=== PATIENT | male | born 1975 | race Caucasian/White ===

== ENCOUNTER 2024-05-17 17:14 | Emergency (ER) | payer OTHER, SELFPAY ==
[2024-05-17 17:19] VITALS: BP 191/124; PULSE 131; RESP 11; TEMP 37; O2SAT 96
--- NOTE | 2024-05-17 17:28 | ED_ITS ---
HPI - Seizure General Chief Complaint: Seizure Stated Complaint: SEIZURE Time Seen by Provider: 05/17/24 17:17 History of Present Illness HPI Narrative: Patient presents here after witnessed seizure at work, he does have a history of seizures is on carbamazepine last seizure was year ago. He was given 4 mg of Narcan accidentally before given 5 mg of Versed intranasally with cessation of seizure, afterwards he does seem very postictal, though he is starting to become more weak. Denies any complaints other than he does have a slight headache, nausea, feeling tired Related Data Home Medications ?Medication ?Instructions ?Recorded ?Confirmed ?Last Taken ?Type carbamazepine 200 mg 1,200 mg PO BID 05/17/24 05/17/24 05/17/24 History tablet,extended release,12 hr Allergies Allergy/AdvReac Type Severity Reaction Status Date / Time droperidol Allergy Intermediate hallucinati Verified 05/17/24 17:30 ons divalproex sodium Allergy Unknown Hallucinati Verified 05/17/24 17:30 ng aspirin AdvReac Unknown Other Verified 05/17/24 17:30 Review of Systems 2 Review of Systems: All systems reviewed & are unremarkable except as noted in HPI and below [facility] Family History Family History (Updated 02/15/18 @ 17:05 by DOCTOR UNKNOWN) Father Malignant neoplasm of prostate Mother Family history of type 2 diabetes mellitus Other Hypertension Social History Social History Smoking status: Never smoker Alcohol intake: current Exam 2 Narrative: EXAMINATION OF ORGAN SYSTEMS/BODY AREAS: Constitutional: Vital signs per nursing GENERAL:[No acute distress, non-toxic appearing.] HEAD: Normal with no signs of head trauma. EYES: EOMI, PERRL. Conjunctiva normal ENT: Hearing grossly intact LUNGS: Nonlabored breathing. HEART: [Regular rate and rhythm] ABD: [Soft], [nontender to palpation] EXT: Normal range of motion SKIN: [No rashes or lesions.] NEURO: [Slightly sleepy but answering questions, oriented x3, following commands. No gross focal sensory or strength deficits.] PSYCH: Normal affect Course Vital Signs Vital signs: Vital Signs Temperature 98.6 F 05/17/24 17:19 Pulse Rate 131 H 05/17/24 17:19 Respiratory Rate 11 L 05/17/24 17:19 Blood Pressure 191/124 H 05/17/24 17:19 Pulse Oximetry 96 05/17/24 17:19 Oxygen Delivery Room Air 05/17/24 17:19 Temperature 98.6 F 05/17/24 17:19 Pulse Rate 124 H 05/17/24 18:16 Respiratory Rate 17 05/17/24 18:16 Blood Pressure 188/110 H 05/17/24 18:16 Pulse Oximetry 99 05/17/24 17:53 Oxygen Delivery Room Air 05/17/24 17:53 MDM - Seizure MDM Narrative Medical decision making narrative: 48F presenting with breakthrough seizures occurring today. Accu-Chek is normal. Seizure precautions are initiated. Patient already got 5mg versed IN. Starting to become more responsive here; rpt VS improved. EKG on my independent interpretation shows sinus rhythm rate 91, normal OK, QRS, QTC 477, normal axis, some PACs. Plan for a period of observation in ER and if without any recurrence of the symptoms, will be discharged in stable condition with return precautions and outpatient follow-up. On re-evaluation he is now awake, alert, walking around and at back to baseline, girlfriend at bedside, he is a little tachycardic, but denies any chest pain or shortness of breath, had normal EKG, I will give him fluids, instructed to keep hydrated and follow-up with neurology Lab Data 05/17/24 17:40 05/17/24 17:40 Labs: Lab Results 05/17/24 05/17/24 Range/Units 17:40 17:45 WBC 6.7 (4.5-10.0) K/mm3 RBC 4.34 L (4.6-6.20) M/mm3 Hgb 14.3 (14.0-18.0) g/dL Hct 41.8 L (42.0-52.0) % MCV 96.3 (80-100) fl MCH 32.9 (26-34) pg MCHC 34.2 (32-36) g/dl RDW 11.9 (11.5-14.5) % Plt Count 164 (150-375) k/mm3 MPV 9.4 (7.4-10.4) fl Immature Gran % (Auto) 0.3 (0-0.5) % Neut % (Auto) 72.2 (45.5-73.1) % Lymph % (Auto) 13.8 L (18.3-44.2) % [place] % (Auto) 13.4 H (2.6-8.5) % Eos % (Auto) 0.0 (0-4.4) % Baso % (Auto) 0.3 (0.2-1.2) % Lymph # (Auto) 0.93 (0.9-3.2) K/mm3 [place] # (Auto) 0.9 H (0.1-0.6) K/mm3 Eos # (Auto) 0.0 (0-0.3) K/mm3 Baso # (Auto) 0.0 (0.0-0.1) K/mm3 Abs Immat Gran (auto) 0.02 (0.00-0.031) K/mm3 Absolute Neuts (auto) 4.9 (1.3-6.7) K/mm3 Absolute Nucleated RBC 0.000 (0.0-0.012) K/mm3 Nucleated RBC % 0.0 (0.0-0.2) % Sodium 135 L (137-145) mmol/L Potassium 3.4 (3.4-5.0) mmol/L Chloride 102 (98-107) mmol/L Carbon Dioxide 21 L (22-30) mmol/L Anion Gap 12 (4-12) mmol/L BUN 15 (9-20) mg/dL Creatinine 0.89 (0.7-1.3) mg/dL Estim Creat Clear Calc 122 ml/min Estimated GFR > 60 (59 - ) Glucose 113 H (65-110) mg/dL Calcium 8.4 (8.4-10.2) mg/dL Urine Opiates Screen Negative (Negative) Urine Methadone Screen Negative (Negative) Ur Barbiturates Screen Negative (Negative) Ur Phencyclidine Scrn Negative (Negative) Ur Amphetamine Screen Negative (Negative) U Benzodiazepines Scrn Positive A (Negative) Urine Cocaine Screen Negative (Negative) U Cannabinoids Screen Negative (Negative) Discharge Plan Discharge Clinical Impression: Epileptic seizure Patient Disposition: Home, Self-Care Condition: Stable Instructions: Epilepsy (ED) Additional Instructions: Make sure you are keeping hydrated, follow-up with neurologist, come back to the emergency room for any further issues. Make sure you are taking your medications as prescribed. Patient Language: French Prescriptions: No Action carbamazepine 200 mg tablet extended release 12 hr 1,200 mg PO BID lisinopril-hydrochlorothiazide 10-12.5 mg tablet 1 tablet PO DAILY Qty: 90 1RF montelukast 10 mg tablet See Rx Instructions .ROUTE .COMPLEX Qty: 90 0RF Dose Instruction: TAKE 1 TABLET BY MOUTH EVERY DAY Rx Instructions: TAKE 1 TABLET BY MOUTH EVERY DAY escitalopram oxalate 20 mg tablet See Rx Instructions .ROUTE .COMPLEX Qty: 90 0RF Dose Instruction: TAKE 1 TABLET BY MOUTH EVERY DAY Rx Instructions: TAKE 1 TABLET BY MOUTH EVERY DAY Follow-up/Referrals: Maria M,Paulino Tucker MD [Primary Care Provider] -
[2024-05-17 17:48] VITALS: O2SAT 100
[2024-05-17 17:48] LABS: Basophils Percent Auto 0.3 % (0.2-1.2); Hematocrit 41.8 % (42.0-52.0); Hemoglobin 14.3 g/dL (14.0-18.0); Immature Granulocyte Absolute 0.02 K/mm3 (0.00-0.031); Immature Granulocyte Percent A 0.3 % (0-0.5); Lymphocytes Absolute Auto 0.93 K/mm3 (0.9-3.2); Lymphocytes Percent Auto 13.8 % (18.3-44.2); Mean Corpuscular HGB Conc 34.2 g/dl (32-36); Mean Corpuscular Hemoglobin 32.9 pg (26-34); Mean Corpuscular Volume 96.3 fl (80-100); Mean Platelet Volume 9.4 fl (7.4-10.4); Monocytes Absolute Auto 0.9 K/mm3 (0.1-0.6); Monocytes Percent Auto 13.4 % (2.6-8.5); Neutrophils Absolute Auto 4.9 K/mm3 (1.3-6.7); Neutrophils Percent Auto 72.2 % (45.5-73.1); Platelet Count Result 164 k/mm3 (150-375); Red Blood Count 4.34 M/mm3 (4.6-6.20); Red Cell Distribution Width 11.9 % (11.5-14.5); White Blood Count 6.7 K/mm3 (4.5-10.0)
[2024-05-17 17:52] VITALS: PULSE 131
[2024-05-17 17:53] VITALS: O2SAT 99
--- NOTE | 2024-05-17 17:56 | ECG_ITS ---
Test Date: 2024-05-17 17:26:25 Measurements Intervals [place] Rate: 91 P: 3 [place]: 170 QRS: 62 QRSD: 91 T: -4 QT: 387 QTc: 477 Interpretive Statements SINUS RHYTHM WITH OCCASIONAL SUPRAVENTRICULAR PREMATURE COMPLEXES DELAYED PRECORDIAL R/S TRANSITION MINIMAL Q WAVES- INFERIOR LEADS NONSPECIFIC ST-T WAVE ABNORMALITY- INF/LAT LEADS BORDERLINE ECG No previous ECG available for comparison Electronically Signed On 05-17-2024 20:16:25 OPERATING ROOM SPECIALIST by Nawaf Wolf D.O.
[2024-05-17 17:58] LABS: Anion Gap 12 mmol/L (4-12); Blood Urea Nitrogen 15 mg/dL (9-20); Calcium 8.4 mg/dL (8.4-10.2); Carbon Dioxide 21 mmol/L (22-30); Chloride 102 mmol/L (98-107); Estimated CRCL calculation 122 ml/min; Estimated Glomerular Filt Rate > 60; Glucose 113 mg/dL (65-110); Potassium 3.4 mmol/L (3.4-5.0); Sodium 135 mmol/L (137-145)
[2024-05-17 18:02] VITALS: BP 188/117; PULSE 128; RESP 16
[2024-05-17 18:07] LABS: Amphetamine Screen Urine Negative (Negative); Barbiturate Screen Urine Negative (Negative); Benzodiazepines Screen Urine Positive (Negative); Cannabinoid Screen Urine Negative (Negative); Cocaine Screen Urine Negative (Negative); Methadone Screen Urine Negative (Negative); Opiate Screen Urine Negative (Negative); Phencyclidine Screen Urine Negative (Negative)
[2024-05-17 18:16] VITALS: BP 188/110; PULSE 124; RESP 17
--- OUTSIDE RECORDS SUMMARY | 2024-05-17 18:21 | XMS_ITS | Referral Summary ---
Author Organization [facility] Building [facility] Address [address] [place] [address] Care Team Providers Care Legend Maker Name Role Phone Tim Pizano MD Primary Care Provider [phone] Allergies Active Allergy Reactions Criticality Noted Date Comments Divalproex Hallucinations Medium Droperidol Other (See comments) Low Agitation and psychosis Iodinated Contrast Media Itching Low 07/06/2021 Penicillins Unknown Low Phenobarbital Agitation Low 09/26/2018 Oseltamivir Hallucinations,Agita abirl n,Nausea & Vomiting Medium 08/22/2019 Vigabatrin Hallucinations Medium 09/10/2015 Medications montelukast (SINGULAIR) 10 mg tablet TAKE 1 TABLET(10 MG) BY MOUTH EVERY NIGHT 90 tablet 3 09/29/19 18 Active escitalopram (LEXAPRO) 20 mg tablet TAKE 1 TABLET BY MOUTH EVERY DAY 01/30/20 18 Active albuterol HFA (PROVENTIL HFA,VENTOLIN HFA,PROAIR HFA) 90 mcg/actuation inhaler Inhale 2 puffs 05/27/19 20 Active losartan-hydro CHLOROthiazide (HYZAAR) 50-12.5 mg per tablet Take 1 tablet by mouth daily 12/21/19 21 Active famotidine (PEPCID) 40 mg tabletIndicati ons:Laryngopha ryngeal reflux (LPR) Take 1 tablet (40 mg total) by mouth nightly 90 tablet 3 11/30/19 22 Active fluticasone propionate (FLONASE) 50 mcg/actuation nasal spray Administer 1 spray into each nostril daily 1 each 12/03/19 23 Active carBAMazepine ER (CARBATROL) 200 mg 12 hr capsuleIndicat ions:Seizures (HCC) TAKE 4 CAPSULES BY MOUTH TWICE DAILY 720 capsule 3 01/18/20 24 Active midazolam (Nayzilam) 5 mg/spray (0.1 mL) spray,non-aero armando spray units INSTILL 1 DROP INTO ONE NOSTRIL EVERY DAY NEEDED 2 each 5 03/08/20 24 Active lacosamide (VIMPAT) 100 mg tablet TAKE 1 TABLET(100 MG) BY MOUTH TWICE DAILY 60 tablet 3 05/13/19 25 Active lacosamide (VIMPAT) 100 mg tablet TAKE 1 TABLET(100 MG) BY MOUTH TWICE DAILY 60 tablet 3 01/05/20 24 025 Discontinued Active Problems Problem Noted Date Diagnosed Date 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/29/19 23 Tendinitis of right foot 12/06/2021 Right foot sprain, initial encounter 12/06/2021 Sudden right hearing loss 11/29/2021 Assessment & Plan (11/29/2021 8:41 AM CDT): Zpak with a meal daily Continue Zyrtec daily Increase Flonase 2 sprays into each nostril while looking down over the sink, do not sniff in or blow nose after use for at least 30 minutes twice daily Restart Pepcid 40 mg at bedtime for 6 weeks Hearing test for Sudden Hearing loss [facility] Cough 08/27/2020 Assessment & Plan (08/27/2020 5:11 PM CDT): Chest X-ray Follow up with Primary care provider for alternative blood pressure therapy off SEVEN-inhibitor for cough Pepcid 40 mg at bedtime Continue Allergy medications Laryngopharyngeal reflux (LPR) 08/27/2020 Assessment & Plan (11/29/2021 8:41 AM CDT): Zpak with a meal daily Continue Zyrtec daily Increase Flonase 2 sprays into each nostril while looking down over the sink, do not sniff in or blow nose after use for at least 30 minutes twice daily Restart Pepcid 40 mg at bedtime for 6 weeks Hearing test for Sudden Hearing loss [facility] Assessment & Plan (08/27/2020 5:11 PM CDT): Chest X-ray Follow up with Primary care provider for alternative blood pressure therapy off SEVEN-inhibitor for cough Pepcid 40 mg at bedtime Continue Allergy medications LPR discussed and Handout provided Foot sprain, left, initial encounter 03/14/2019 Hypertrophy of nasal turbinates 04/12/2018 Hypertrophy of tonsils alone 04/12/2018 Esophageal reflux 04/12/2018 Deviated nasal septum 04/12/2018 Chronic laryngitis 04/12/2018 Assessment & Plan (11/29/2021 8:41 AM CDT): Zpak with a meal daily Continue Zyrtec daily Increase Flonase 2 sprays into each nostril while looking down over the sink, do not sniff in or blow nose after use for at least 30 minutes twice daily Restart Pepcid 40 mg at bedtime for 6 weeks Hearing test for Sudden Hearing loss [facility] Periodic limb movement disorder 04/12/2018 Seasonal allergic rhinitis 09/28/2017 Assessment & Plan (09/28/2017 9:54 AM CDT): Patient is responded favorably to fluticasone nasal spray, Xyzal and Singulair as prescribed. Patient's sinonasal symptoms are well controlled with this treatment regimen. His medications will be renewed. Future renewal of the medications can be performed by his primary care physician to try to reduce physician visits. Patient can follow back up with me as needed. Elevated blood pressure, situational 09/01/2017 Complex partial seizure evolving to generalized seizure 07/29/2017 Obstructive sleep apnea (adult) (pediatric) 06/2016 Assessment & Plan (10/06/2016 8:17 AM CDT): Patient's last sleep study was performed November 2013. Since then he has lost over 30 lb and also has been on allergy medication on a compliant basis. His initial sleep study demonstrated mild obstructive sleep apnea with an apnea-hypopnea index: 8.8. Today's [place] score: 3 . I suspect that a updated sleep study would have markedly different results due to the changes that have occurred with this patient. We will arrange home sleep study with CAMIL[facility]. Patient will follow back up afterwards to discuss the findings and any further treatment recommendations. Migraine without aura and wi thout status migrainosus, not intractable 09/10/2015 Immunizations Name Administration Dates Next Due DTP 11/18/1982, 3,03/23/1978,01/20,1977 Influenza, Quadrivalent, Spl it, Preservative Free, Intramuscular 01/17/2019 MMR 11/23/1992,01/15/1979 OPV 11/18/1982, 3,03/23/1978,01/20,1977 Td, adsorbed 11/23/1992 Tdap 04/02/2017 Social History Tobacco Use Types Packs/Day Years Used Date Smoking Tobacco: Never Smokeless Tobacco: Never Tobacco Cessation:Counseling Given: Not Answered Alcohol Use Standard Drinks/Week Comments Yes 0 (1 standard drink = 0.6 oz pur e alcohol) occaisional Personal Safety Answer Date Recorded Getting School Help Needed Not on file 11/30 Sex and Gender Information Value Date Recorded Sex Assigned at Not on file Legal Sex Male 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 EXTERMINATOR Gender Identity Male 08/21/2019 5:02 PM CDT Sexual Orientation Straight 08/21/2019 5: 02 PM CDT Last Filed Vital Signs Vital Sign Reading Time Taken Comments Blood Pressure 150/90 06/03/2023 6:22 PM RAT EXTERMINATOR Pulse 85 06/03/2023 6:22 PM RAT EXTERMINATOR Temperature 36.8 C (98.2 F) 06/03/2023 6:22 PM RAT EXTERMINATOR Respiratory Rate 18 06/03/2023 6:22 PM RAT EXTERMINATOR Oxygen Saturation 97% 06/03/2023 6:22 PM RAT EXTERMINATOR Inhaled Oxygen Concentration - - Weight 108.9 kg (240 lb) 06/03/2023 6:22 PM RAT EXTERMINATOR Height 182.9 cm (6') 06/03/2023 6:22 PM RAT EXTERMINATOR Body Mass Index 32.55 06/03/2023 6:22 PM RAT EXTERMINATOR Plan of Treatment Not on file Insurance [facility] H[facility]/PPO Address: [address] [place] [address] [facility]/PPO Address: [address] [address] [place] [address] [facility] Advance Directives For more information, please contact: [phone] * Full Code (Latest Code Status on File) Date Activated Date Inactivated Comments 11/28/2022 2:57 AM 12/01/2022 8:38 PM Care Teams Legend Maker Relationship Specialty Start Date End Date Tim Pizano MD PCP - General 03/14/19
--- OUTSIDE RECORDS SUMMARY | 2024-05-17 18:21 | XMS_ITS | Clinical Summary ---
Author Organization [facility] Building [address] Address [address] [place] [address] Care Team Providers Care Chef Instructor Name Role Phone Tim Pizano MD Primary Care Provider [phone] Allergies Active Allergy Reactions Criticality Noted Date Comments Divalproex Hallucinations Medium Droperidol Other (See comments) Low Agitation and psychosis Iodinated Contrast Media Itching Low 07/06/2021 Penicillins Unknown Low Phenobarbital Agitation Low 09/26/2018 Oseltamivir Hallucinations,Agita abril n,Nausea & Vomiting Medium 08/22/2019 Vigabatrin Hallucinations [...] apnea with an apnea-hypopnea index: 8.8. Today's [place] score: 3 . I suspect that a [...] 11/18/1982, 3,03/23/1978,01/20,1977 Td, adsorbed 11/23/1992 Tdap 04/02/2017 Surgical History Surgery Date Site/Laterality Comments CRANIOTOMY Right Temporal Medical History Medical History Date Comments Calculus of kidney nephrolithias is Seizure disorder (CMS/HCC) (HCC) Seizure disorder Arteriovenous malformation AV ma lformation Hypertension Family History Medical History Relation Name Comments Cancer Father Other Father Alive and well; Hypertension Mother Other Mother Alive and well; Epilepsy Other Maternal Aunt Relation Name Status Comments Father Alive Mother Alive Other Alive Social History Tobacco Use Types Packs/Day Years [...] on file 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 Gender Identity Male 08/21/2019 5:02 PM CDT Sexual Orientation Straight 08/21/2019 5: 02 PM CDT Obstetrics History Last Filed Vital Signs Vital Sign Reading Time Taken Comments Blood Pressure 150/90 06/03/2023 6:22 PM ELECTRIC CLOCK MECHANIC Pulse 85 06/03/2023 6:22 PM ELECTRIC CLOCK MECHANIC Temperature 36.8 C (98.2 F) 06/03/2023 6:22 PM ELECTRIC CLOCK MECHANIC Respiratory Rate 18 06/03/2023 6:22 PM ELECTRIC CLOCK MECHANIC Oxygen Saturation 97% 06/03/2023 6:22 PM ELECTRIC CLOCK MECHANIC Inhaled Oxygen Concentration - - Weight 108.9 kg (240 lb) 06/03/2023 6:22 PM ELECTRIC CLOCK MECHANIC Height 182.9 cm (6') 06/03/2023 6:22 PM ELECTRIC CLOCK MECHANIC Body Mass Index 32.55 06/03/2023 6:22 PM ELECTRIC CLOCK MECHANIC Plan of Treatment Health Maintenance Due Date Last Done Comments Colon Cancer Screening-Colonoscopy 1977 Depression Screening 1977 Hepatitis C Screening 1977 Hepatitis B Screening 09/18/1995 Regular Well Visit/Exam 18-64 09/18/1995 Covid-19 Vaccine ( season) 2023 05/11/2020, 04/20/2020 Influenza Vaccine (#1) 2023 01/24/2019, 2018 DTaP/Tdap/Td Vaccine (6 - Td or Tdap) 04/02/2027 04/02/2017, 04/02/2017, 11/23/1992, Additional history exists HPV Vaccines Aged Out No longer eligi ble based on patient's age to complete this topic Pneumococcal vaccine <65 Aged Out No longer eligible based on patient's age to complete this topic Insurance [facility] PLUS [facility] HMO/PPO Address: [facility] [address] [place] [address] [facility] CHOICE PLUS [facility] HMO/PPO Address: [address] [address] [place] [address] [facility] [employer] Advance Directives For more information, please contact: [phone] * Full Code (Latest Code Status on File) Date Activated Date Inactivated Comments 11/28/2022 2:57 AM 12/01/2022 8:38 PM Care Teams Chef Instructor Relationship Specialty Start Date End Date Tim Pizano MD PCP - General 03/14/19
--- OUTSIDE RECORDS SUMMARY | 2024-05-17 18:21 | XMS_ITS | Encounter Summary ---
Author Organization [facility] Address [address] [facility] [address] [facility] [address] Phone Care Team Providers Care Test Lead Name Role Phone Tim Pizano MD Primary Care Provider [phone] Reason for Visit * Reason Comments Medication Refill Encounter Details Date Type Department Care Team (Late st Contact Info) Description 12/07/2020 Refill [facility] Medical Group - Family Medicine [facility] [address] [place] [address] Tim Pizano MD [address] [place] [address] Medication Refill Social History Tobacco Use Types Packs/Day Years Used Date Smoking Tobacco: Never Smokeless Tobacco: Never Alcohol Use Standard Drinks/Week Comments Yes 6 (1 standard drink = 0.6 oz pur e alcohol) social PHQ-2 Answer Date Recorded Total Score - Questions 1-9 0 08/05 Sexually Active Control Partners Comments Yes Female Sex and Gender Information Value Date Recorded Sex Assigned at Male 06/01/2023 10:03 AM MANAGER SPANISH Legal Sex Male 3:25 AM MANAGER SPANISH Gender Identity Male 06/01/2023 10:03 AM MANAGER SPANISH Sexual Orientation Straight 06/01/2023 10 :03 AM MANAGER SPANISH 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 Please call in * Telephone Encounter - Juana Argueta RN - 12/11/2020 10:01 AM CDT Patient has appointment 12/20/20 Medication failed the protocol, provider to review and approve the medication order if appropriate. Requested Prescriptions Pending Prescriptions Disp Refills montelukast (SINGULAIR) 10 MG Tablet [Pharmacy Med Name: MONTELUKAST 10MG TABLETS] 30 Tablet 0 Sig: TAKE 1 TABLET BY MOUTH EVERY DAY Leukotriene Inhibitors Protocol Failed - 12/07/2020 4:51 PM Failed - Visit with relevant provider in past 12 months or upcoming 90 days Recent Visits No visits were found meeting these conditions. Showing recent visits within past 365 days and meeting all other requirements Future Appointments Date Type Provider Dept 12/20/20 Appointment Tim Pizano MD [facility] Showing future appointments within next 90 days and meeting all other requirements escitalopram (LEXAPRO) 20 MG Tablet [Pharmacy Med Name: ESCITALOPRAM 20MG TABLETS] 30 Tablet 0 Sig: TAKE 1 TABLET BY MOUTH EVERY DAY SSRI (6 Month Refill Only) Protocol Failed - 12/07/2020 4:51 PM Failed - Visit with relevant provider in past 6 months or upcoming 90 days Recent Visits No visits were found meeting these conditions. Showing recent visits within past 182 days and meeting all other requirements Future Appointments Date Type Provider Dept 12/20/20 Appointment Tim Pizano MD [facility] Showing future appointments within next 90 days and meeting all other requirements Failed - Has an encounter in the past 6 months with a depression, anxiety, adjustment disorder, OCD, or PTSD visit diagnosis Passed - Patient has established therapy with SSRI for at least 6 months documented in this encounter Plan of Treatment Not on file documented as of this encounter Visit Diagnoses Diagnosis Allergic rhinitis due to pollen documented in this encounter Additional Health Concerns Infection Onset Date Last Indicated Resolved Time COVID - 19 02/15/2021 02/15/202103/07/2021 12:1 6 AM MANAGER SPANISH COVID - 19 03/14/2021 03/14/2021 04/03/2021 12:1 6 AM MANAGER SPANISH Assessment Noted Time PHQ-9 Depression Total Score: 0 08/30/19 9:01 AM CDT documented as of this encounter Care Teams Test Lead Relationship Specialty Start Date End Date Tim Pizano MD PCP - General Family Medicine 02/23/19 documented as of this encounter
--- OUTSIDE RECORDS SUMMARY | 2024-05-17 18:21 | XMS_ITS | Encounter Summary ---
Author Organization [facility] Address [address] [facility] [facility] [address] [place] [address] Phone Care Team Providers Care Cloth Washer Name Role Phone Tim Pizano MD Primary Care Provider [phone] Reason for Visit * Reason Comments Medication Refill Encounter Details Date Type Department Care Team (Late st Contact Info) Description 12/04/2020 Refill [facility] Medical Group - Family Medicine 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 Patient has not seen Dr Pizano since August 2019. Patient may have switched his PCP. documented in this encounter Plan of Treatment Not on file documented as of this encounter Visit Diagnoses Diagnosis Allergic rhinitis due to pollen documented in this encounter Additional Health Concerns Infection Onset Date Last Indicated Resolved Time COVID - 02/15/2021 02/15/2021 03/07/2021 12:1 6 AM PRINTED CIRCUIT BOARD PANELS DEBURRER COVID - 03/14/2021 03/14/2021 04/03/2021 12:1 6 AM PRINTED CIRCUIT BOARD PANELS DEBURRER Assessment Noted Time PHQ-9 Depression Total Score: 0 08/30/19 20 9:01 AM CDT documented as of this encounter Care Teams Cloth Washer Relationship Specialty Start Date End Date Tim Pizano MD PCP - General Family Medicine 02/23/19 documented as of this encounter
--- OUTSIDE RECORDS SUMMARY | 2024-05-17 18:22 | XMS_ITS | Encounter Summary ---
Author Organization [facility] Address [address] [facility] [place] [place] [address] Phone Care Team Providers Care Play Writer Name Role Phone Tim Pizano MD Primary Care Provider [phone] Reason for Visit * Reason Comments Medication Refill Encounter Details Date Type Department Care Team (Late st Contact Info) Description 11/13/2021 Refill [facility] - Family Medicine [facility] [address] [place] [address] Tim Pizano MD [address] [place] [address] Medication Refill Social History Tobacco Use Types Packs/Day Years Used Date Smoking Tobacco: Never Smokeless Tobacco: Never Alcohol Use Standard Drinks/Week Comments Yes 6 (1 standard drink = 0.6 oz pur e alcohol) Social PHQ-2 Answer Date Recorded Total Score - Questions 1-9 0 12/05 Education Answer Date Recorded What is the highest level of school you have completed or the highest degree you have received? 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
--- OUTSIDE RECORDS SUMMARY | 2024-05-17 18:22 | XMS_ITS | Referral Summary ---
Author Organization [facility] Address [address] [place] [address] Care Team Providers Care State Pilot Name Role Phone Unavailable Primary Care Provider Unavailabl e Source Comments [facility],non-owned Affiliates and Associated Physician Practices is amultiple site organization consisting of ambulatory clinics and hospital sitesin [place], [place], [place] and [place]. This disclosure is being madepursuant to the Care Everywhere program and may not contain all information available regarding this patient. Last updated 17.[facility] Social History Tobacco Use Types Packs/Day Years Used Date Smoking Tobacco: Never Assessed Sex and Gender Information Value Date Recorded Sex Assigned at Not on file Gender Identity Not on file Sexual Orientation Not on file Plan of Treatment Not on file
--- OUTSIDE RECORDS SUMMARY | 2024-05-17 18:22 | XMS_ITS | Encounter Summary ---
Author Organization [facility] Address [address] [facility] [place] [address] Phone Care Team Providers Care Saw Cleaner Name Role Phone Mynor Pizano MD Primary Care Provider [phone] Reason for Visit * Reason Comments Medication Refill Encounter Details Date Type Department Care Team (Late st Contact Info) Description 04/18/2022 Refill [facility] - Family Medicine [facility] [address] [place] [address] Mynor Pizano MD [address] [place] [address] Medication Refill Social History Tobacco Use Types [...] Sex Assigned at Male 06/01/2023 10:03 AM MOTORCYCLE BUILDER Legal Sex Male 3:25 AM MOTORCYCLE BUILDER Gender Identity Male 06/01/2023 10:03 AM MOTORCYCLE BUILDER Sexual Orientation Straight 06/01/2023 10 :03 AM MOTORCYCLE BUILDER 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 Escitalopram Oxalate Dispensed Days Supply Quantity Provider Pharmacy ESCITALOPRAM 20MG TAB 04/11/2022 90 135 Tablet [facility] ESCITALOPRAM 20MG TABLETS 01/13/2022 90 135 Each [facility] RCYCLE BUILDER documented in this encounter Plan of Treatment Not on file documented as of this encounter Visit Diagnoses Diagnosis Anxiety Anxiety state, unspecified documented in this encounter Additional Health Concerns Assessment Noted Time PHQ-9 Depression Total Score: 0 12/21/19 21 4:00 PM CDT documented as of this encounter Care Teams Saw Cleaner Relationship Specialty Start Date End Date Mynor Pizano MD PCP - General Family Medicine 02/23/19 documented as of this encounter
--- OUTSIDE RECORDS SUMMARY | 2024-05-17 18:22 | XMS_ITS | Encounter Summary ---
Author Organization [facility] Address [address] [facility] [place] [address] Phone Care Team Providers Care Engineering Technician Name Role Phone Tim Pizano MD Primary Care Provider [phone] Reason for Visit * Reason Comments Medication Refill Encounter Details Date Type Department Care Team (Late st Contact Info) Description 05/28/2023 Refill [facility] - Family Medicine [facility] [address] [place] [address] Tim Pizano MD [address] [place] [address] Medication Refill Social History Tobacco Use Types [...] or the highest degree you have received? 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 Requested Prescriptions Pending Prescriptions Disp Refills losartan-hydrochlorothiazide (HYZAAR) 50-12.5 MG Tablet [Pharmacy Med Name: LOSARTAN/HCTZ 50/12.5MGTABLETS] 90 Tablet 1 Sig: TAKE 1 TABLET BY MOUTH DAILY ANGIOTENSIN-II RECEPTOR BLOCKERS-DIURETICS COMBO PROTOCOL Failed - 05/28/2023 11:30 AM Failed - Serum potassium on record in past 12 months POTASSIUM Date Value Ref Range Status 06/19/2021 3.6 3.5 - 5.1 mmol/L Final Failed - Serum sodium on record in past 12 months SODIUM Date Value Ref Range Status 06/19/2021 145 (H) 136 - 144 mmol/L Final Failed - GFR on record in past 12 months GFR, EST. NONAFRICAN Date Value Ref Range Status 06/19/2021 >60 >=60 Final Passed - BP on record in the past year Clinician-entered: BP Readings from Last 3 Encounters: 11/13/22 134/86 10/25/22 (!) 162/102 02/06/22 160/90 Patient-entered: No data recorded Passed - Visit with relevant provider in past year or upcoming 90 days Recent Visits Date Type Provider Dept 11/13/22 Office Visit Tim Pizano MD [facility] Showing recent visits within past 365 days and meeting all other requirements Future Appointments No visits were found meeting these conditions. Showing future appointments within next 90 days and meeting all other requirements ENGER BRAKEMAN documented in this encounter Plan of Treatment Not on file documented as of this encounter Visit Diagnoses Diagnosis Essential hypertension Unspecified essential hypertension documented in this encounter Additional Health Concerns Assessment Noted Time PHQ-9 Depression Total Score: 0 12/21/19 21 4:00 PM CDT documented as of this encounter Care Teams Engineering Technician Relationship Specialty Start Date End Date Tim Pizano MD PCP - General Family Medicine 02/23/19 documented as of this encounter
--- OUTSIDE RECORDS SUMMARY | 2024-05-17 18:22 | XMS_ITS | Encounter Summary ---
Author Organization [facility] Address [address] [facility] [place] [address] Phone Care Team Providers Care Regroover Name Role Phone Tim Pizano MD Primary Care Provider [phone] Reason for Visit * Reason Comments Medication Refill Encounter Details Date Type Department Care Team (Late st Contact Info) Description 12/22/[address] 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 Losartan Potassium-HCTZ Dispensed Days Supply Quantity Provider Pharmacy LOSARTAN/HCTZ 50/12.5MG TABLETS 12/14/2022 90 90 Each Tim Pizano MD [facility] #... LOSARTAN/HCTZ 50/12.5MG TABLETS 09/15/2022 90 90 Each Tim Pizano MD [facility] #... documented in this encounter Plan of Treatment Not on file documented as of this encounter Visit Diagnoses Diagnosis Essential hypertension Unspecified essential hypertension documented in this encounter Additional Health Concerns Assessment Noted Time PHQ-9 Depression Total Score: 0 12/21/19 21 4:00 PM CDT documented as of this encounter Care Teams Regroover Relationship Specialty Start Date End Date Tim Pizano MD PCP - General Family Medicine 02/23/19 documented as of this encounter
--- OUTSIDE RECORDS SUMMARY | 2024-05-17 18:22 | XMS_ITS | Clinical Summary ---
Author Organization [facility] Address [address] [place] [address] Care Team Providers Care Call Or Contact Centre Manager Name Role Phone Unavailable Primary Care Provider Unavailabl e Source Comments [facility],non-owned Affiliates and Associated Physician Practices is amultiple site organization consisting of ambulatory clinics and hospital sitesin [place], [place], [place] and [place]. This disclosure is being madepursuant to the Care Everywhere program and may not contain all information available regarding this patient. Last updated 17.[facility] Social History Tobacco Use Types Packs/Day Years Used Date Smoking Tobacco: Never Assessed Sex and Gender Information Value Date Recorded Sex Assigned at Not on file Gender Identity Not on file Sexual Orientation Not on file Plan of Treatment Health Maintenance Due Date Last Done Comments COLOGUARD (AGES 45-75) - COL ON CA SCREENING 1977 COLON MONITORING 1977 COLONOSCOPY - COLON CA SCREENING 1977 CT COLONOGRAPHY - COLON CA SCREENING 1977 Colorectal Cancer Screening 1977 FIT - COLON CA SCREENING 1977 FLEX SIG - COLON CA SCREENING 1977 LIPID TESTING 1977 HIV SCREENING 1992 HEPATITIS C SCREENING 09/13/1995 DTAP/TDAP/TD VACCINES (1 - Tdap) 1996 HEPATITIS B VACCINE (1 of 3 - 19+ 3-dose series) 1996 COVID-19 VACCINE ( - 2023-2 5 season) 2023 INFLUENZA VACCINE (#1) 2023 DEPRESSION SCREENING 04/06/2024 ZOSTER VACCINE (1 of 2) 09/18/2027 HIB VACCINE Aged Out No longer eligi ble based on patient's age to complete this topic HPV VACCINE Aged Out No longer eligi ble based on patient's age to complete this topic MENINGOCOCCAL (Group B) VACCINE Aged Out No longer eligible based on patient's age to complete this topic MENINGOCOCCAL VACCINE Aged Out No ana luisa karel eligible based on patient's age to complete this topic PNEUMOCOCCAL VACCINE Aged Out No long er eligible based on patient's age to complete this topic
--- OUTSIDE RECORDS SUMMARY | 2024-05-17 18:22 | XMS_ITS | Encounter Summary ---
Author Organization [facility] Address [address] [facility] [place] [address] Phone Care Team Providers Care Diesel Locomotive Engineer Name Role Phone Mynor Pizano MD Primary Care Provider [phone] Reason for Visit * Reason Comments Medication Refill Encounter Details Date Type Department Care Team (Late st Contact Info) Description 10/05/2021 Refill [facility] - Family Medicine [facility] [address] [place] [address] Mynor Pizano MD [address] [place] [address] Medication Refill Social History Tobacco Use Types [...] Sex Assigned at Male 06/01/2023 10:03 AM STEEL UNLOADER Legal Sex Male 3:25 AM STEEL UNLOADER Gender Identity Male 06/01/2023 10:03 AM STEEL UNLOADER Sexual Orientation Straight 06/01/2023 10 :03 AM STEEL UNLOADER 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 No / Unsure 09/13/2021 9:15 AM CDT documented as of this encounter Miscellaneous Notes * Telephone Encounter - Juana Argueta RN - 10/08/2021 8:58 AM CDT Images from the original note were not included. Losartan Potassium-HCTZ Dispensed Days Supply Quantity Provider Pharmacy LOSARTAN POTASSIUM/HYDROCHLOROTHIAZ DENISE 50-12.5 MG TABS 09/28/2021 90 90 Tablet [facility]ZANO [facility]... LOSARTAN/HCTZ 50/12.5MG TABLETS 07/02/2021 90 90 Each PIZANO,MYNOR [facility]... documented in this encounter Plan of Treatment Not on file documented as of this encounter Visit Diagnoses Diagnosis Essential hypertension Unspecified essential hypertension documented in this encounter Additional Health Concerns Assessment Noted Time PHQ-9 Depression Total Score: 0 12/21/19 21 4:00 PM CDT documented as of this encounter Care Teams Diesel Locomotive Engineer Relationship Specialty Start Date End Date Mynor Pizano MD PCP - General Family Medicine 02/23/19 documented as of this encounter
--- OUTSIDE RECORDS SUMMARY | 2024-05-17 18:22 | XMS_ITS | Clinical Summary ---
Author Organization [facility] Address [address] [place] [address] Phone Care Team Providers Care Wet End Tester Name Role Phone Tim Pizano MD Primary Care Provider [phone] Allergies Active Allergy Reactions Criticality Noted Date Comments Aspirin Unknown,Other (see Comments) High Can not use because Doctor told him he can use. Do because it is blood thinner Divalproex Sodium Hallucinations,Unknown High Droperidol Hallucinations,Unknown High 05/31/2015 Oseltamivir Hallucinations Medium 08/22/2019 Penicillins Unknown,Other (see Comments) High 05/31/2015 Phenobarbital Hallucinations,Other (see Comments) High 09/26/2018 Violent , crying , Sad, agitated Vigabatrin Anaphylaxis,Hallucin ati ons High 09/10/2015 Oseltamivir Phosphate Hallucinations 08/30/2019 Medications lacosamide (VIMPAT) 50 MG Tablet Take 1 Tab by mouth 2 times daily. 60 Tab 6 8 Active carBAMazepine (CARBATROL) 200 MG CAPSULE SR 12 HR TK 4 CS PO BID 0 Active cetirizine (ZYRTEC) 10 MG TabletIndication s:Allergic rhinitis, unspecified seasonality, unspecified trigger Take 1 Tab by mouth daily. 90 Tab 0 Active albuterol 108 (90 Base) MCG/ACT Aerosol SolutionIndicati ons:Allergic rhinitis due to pollen take 2 Puffs by inhalation every 4 hours as needed for Wheezing. 18 g 3 1 Active montelukast (SINGULAIR) 10 MG TabletIndication s:Allergic rhinitis due to pollen TAKE 1 TABLET BY MOUTH EVERY DAY 90 Tablet 3 1 Active LORazepam (ATIVAN) 0.5 MG TabletIndication s:Anxiety Take 1 Tablet by mouth every 6 hours as needed for Anxiety. 30 Tablet 1 2 Active SUMAtriptan (IMITREX) 100 MG Tablet Take 1 Tablet by mouth daily as needed for Migraine. Use as directed. May repeat dose in 2 hours if headache recurs. 9 Tablet 3 2 Active triamcinolone (KENALOG) 0.1 % CreamIndications :Eczema, unspecified type Apply to lesions Bid until gone 45 g 1 3 Active Additional Information Patient not taking.Reported on 07/30/2023 LORazepam (ATIVAN) 0.5 MG TabletIndication s:Anxiety Take 1 Tablet by mouth every 6 hours as needed for Anxiety. 20 Tablet 4 Active losartan-hydroch lorothiazide (HYZAAR) 50-12.5 MG TabletIndication s:Essential hypertension TAKE 1 TABLET BY MOUTH DAILY 90 Tablet 1 4 Active venlafaxine (EFFEXOR-XR) 75 MG CAPSULE SR 24 HR TAKE 1 CAPSULE BY MOUTH DAILY 90 Capsule 1 4 Active Active Problems Problem Noted Date Diagnosed Date Laryngopharyngeal reflux (LPR) 08/27/2020 Overview (12/20/2020): Last Assessment & Plan: Chest X-ray Follow up with Primary care provider for alternative blood pressure therapy off SEVEN-inhibitor for cough Pepcid 40 mg at bedtime Continue Allergy medications LPR discussed and Handout provided High blood pressure 08/30/2019 Allergic rhinitis 04/09/2019 Eczema 04/09/2019 Seizures 07/29/2017 Complex partial seizure evolving to generalized seizure 07/29/2017 Migraine without aura and wi thout status migrainosus, not intractable 09/10/2015 Partial idiopathic epilepsy with seizures of localized onset, not intractable, without status epilepticus 09/10/2015 Deviated nasal septum Hypertrophy of nasal turbinates Chronic laryngitis Esophageal reflux Obstructive sleep apnea Periodic limb movement disorder Hypertrophy of tonsils alone Anxiety disorder Overview (07/22/2021): nos Resolved Problems Problem Noted Date Diagnosed Date Resolved Date Elevated blood pressure, situational 09/01/2017 08/30/2019 Acute maxillary sinusitis 05/31/2015 Immunizations Immunization Administration Dates Next Due Covid-19, Mrna, Lnp-s, Pf, 3 0 Mcg/0.3 Ml Dose (CommScope) 04/07/2021,05/11/2020,04/20/2020 DTP Vaccine 11/18/1982, 3,03/23/1978,1977,1977 Influenza Seasonal, Intrader mal, Preservative Free 01/17/2019 Influenza Vaccine greater than 3 yrs 01/24/2019 Influenza Vaccine, Quadrivalent, PF 01/01/2023,1 Influenza, Seasonal, Injecta ble, Undefined 01/24/2019 MMR Vaccine 11/23/1992,01/15/1979 OPV 11/18/1982, 3,03/23/1978,1977,1977 TD VACCINE 11/23/1992 TDAP Vaccine 04/02/2017 Td (Adult) 11/23/1992 Td, Adsorbed, Preservative F ree, Adult Use, Lf Unspecified 11/23/1992 Td, Unspecified Formulation 04/02/2017 Family History Medical History Relation Name Comments Hypertension Father Diabetes Maternal Grandfather Heart Surgery Maternal Grandfather High Cholesterol Maternal Grandfather Heart Surgery Maternal Grandmother Asthma Mother Diabetes Mother Hypertension Mother Hemachromatosis Other multiple fam jean members with hemochromatosis Heart Disease Paternal Grandfather No Known Problems Paternal Grandmother Relation Name Status Comments Father Alive Maternal Grandfather Maternal Grandmother Alive Mother Alive Other Paternal Grandfather Paternal Grandmother Social History Tobacco Use Types Packs/Day Years Used Date Smoking Tobacco: Never Smokeless Tobacco: Never Tobacco Cessation:Counseling Given: No Alcohol Use Standard Drinks/Week Comments Yes 6 [...] Sex Assigned at Male 06/01/2023 10:03 AM CREATIVE DEVELOPER Legal Sex Male 3:25 AM CREATIVE DEVELOPER Gender Identity Male 06/01/2023 10:03 AM CREATIVE DEVELOPER Sexual Orientation Straight 06/01/2023 10 :03 AM CREATIVE DEVELOPER 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 on file Not on file Last Filed Vital Signs Vital Sign Reading Time Taken Comments Blood Pressure 140/92 10/12/2023 3:05 PM CDT Pulse 102 10/12/2023 3:05 PM CDT Temperature 36.3 C (97.3 F) 10/12/2023 3:05 PM CDT Respiratory Rate 16 10/12/2023 3:05 PM CDT Oxygen Saturation 96% 10/12/2023 3:05 PM CDT Inhaled Oxygen Concentration - - Weight 113.4 kg (250 lb) 10/12/2023 3:05 PM CDT Height 180.3 cm (5' 11 ) 10/12/2023 3:05 PM CDT Body Mass Index 34.87 10/12/2023 3:05 PM CDT Plan of Treatment Health Maintenance Due Date Last Done Comments Hepatitis C Virus (HCV) Screening 1977 Hepatitis B Immunization (1 of 3 - 19+ 3-dose series) 1996 Colonoscopy 2022 Colorectal Cancer Screening 2022 Influenza Immunization (#1) 12/06/202312/06, 01/24/2019, 01/17/2019 SARS-COV-2 Immunization ( season) 2023 04/07/2021, 05/11/2020, 04/20/2020 DTaP/Tdap/Td Immunization (7 - Td or Tdap) 04/02/2027 04/02/2017, 04/02/2017, 11/23/1992, Additional history exists Respiratory Syncytial Virus (RSV) Immunization (Adult) (1 - 1-dose 75+ series) 2052 Meningococcal Immunization (ACWY) Aged Out No longer eligible based on patient's age to complete this topic Pneumococcal Immunization Combined Aged Out No longer eligible based on patient's age to complete this topic Rotavirus Immunization Aged Out No lo nger eligible based on patient's age to complete this topic Insurance [employer] Advance Directives * Full Code (Latest Code Status on File) Date Activated Date Inactivated Comments 08/31/2015 8:34 AM 08/31/2015 10:13 PM CPR-Full Tr eatment: FULL ARREST: Attempt Resuscitation/CPR wit intubation and mechanical ventilation. PRE-ARREST: Use entire range of life support measures to stabilize the patient. Care Teams Wet End Tester Relationship Specialty Start Date End Date Tim Pizano MD PCP - General Family Medicine 02/23/19
--- OUTSIDE RECORDS SUMMARY | 2024-05-17 18:22 | XMS_ITS | Patient Health Summary ---
Author Organization [facility] Address [address] [place] [address] Care Team Providers Care Resilient Tile Installer Name Role Phone Unavailable Primary Care Provider Unavailabl e Note from [facility],non-owned Affiliates and Associated Physician Practices is amultiple site organization consisting of ambulatory clinics and hospital sitesin [place], [place], [place] and [place]. This disclosure is being madepursuant to the Care Everywhere program and may not contain all information available regarding this patient. Last updated 17.[facility] Social History Tobacco Use Types Packs/Day Years Used Date Smoking Tobacco: Never Assessed Sex and Gender Information Value Date Recorded Sex Assigned at Not on file Gender Identity Not on file Sexual Orientation Not on file Procedures * SARS-COV-2 (COVID-19) IN HOUSE(Performed 10/22/2019) Results * SARS-COV-2 (COVID-19) IN HOUSE (10/22/2019 11:13 AM CDT) COVID-19 PCR Not detected Not detected, Invalid 10/23/2019 8:25 PM CDT [facility] Microbiology SPECIMEN FROM NASOPHARYNGEAL STRUCTURE / Unknown Collection / Unknown 10/22/2019 11:13 AM CDT 10/23/2019 11:59 AM CDT Narrative [facility] - 10/23/2019 8:25 PM CDT This Real Time RT-PCR assay was developed and its performance characteristics determined by [facility]. This test has been authorized by the Food and Drug administration (FDA)under an Emergency Use Authorization (EUA). This test has been validated in accordance with the FDA's guidance document Policy for Diagnostic Testing in Laboratories Certified to perform High Complexity Testing under CLIA prior to Emergency Use Authorization for Coronavirus Disease-2019 during the Public Health Emergency issued on June 04, 2019. FDA independent review of this validation is pending. This test is only authorized for the duration of time the declaration that circumstances exist justifying the authorization of emergency use of in vitro diagnostic tests for detection of SARS-CoV-2 virus and/or diagnosis of COVID-19 infection under section 564(b)(1) of the Act, 21 U.S.C 360bbb-3 (b)(1), unless the authorization is terminated or revoked sooner. Joss Montanez MD LAB - MICROBIOLOGY ORDERABLES [facility] [address] [place], [place] [address], [facility] [phone]
--- OUTSIDE RECORDS SUMMARY | 2024-05-17 18:22 | XMS_ITS | Encounter Summary ---
Author Organization [facility] Address [address] [place] [address] Care Team Providers Care Pill Maker Name Role Phone Unavailable Primary Care Provider Unavailabl e Encounter Details Date Type Department Care Team (Late st Contact Info) Description 10/23/2019 Lab Requisition [facility] [address] [place] [address] Joss Montanez MD Social History Tobacco Use Types Packs/Day Years Used Date Smoking Tobacco: Never Assessed Sex and Gender Information Value Date Recorded Sex Assigned at Not on file Gender Identity Not on file Sexual Orientation Not on file documented as of this encounter Plan of Treatment Not on file documented as of this encounter Procedures Procedure Name Priority Date/Time Associated Diagnosis Comments SARS-COV-2 (COVID-19) IN HOUSE Routine 10/22/2019 11:13 AM CDT documented in this encounter Results * SARS-COV-2 (COVID-19) IN HOUSE (10/22/2019 11:13 AM CDT) COVID-19 PCR Not detected Not detected, Invalid 10/23/2019 8:[address] [facility] Microbiology SPECIMEN FROM NASOPHARYNGEAL STRUCTURE / Unknown Collection / Unknown 10/22/2019 11:13 AM CDT 10/23/2019 11:[address] [facility] - 10/23/2019 8:25 PM CDT This Real Time RT-PCR assay was developed and its performance characteristics determined by [facility]. This test has been [...] Joss Montanez MD LAB - MICROBIOLOGY ORDERABLES [facility] [address] [place] [address], [facility] [phone] documented in this encounter Visit Diagnoses Not on filedocumented in this encounter Additional Health Concerns Infection Onset Date Last Indicated Resolved Time COVID-19 Under Investigation 10/22/2019 10/22/2019 10/23/2019 8:25 PM CDT documented as of this encounter
[2024-05-17] MEDS: ACETAMINOPHEN 500 MG TABLET 1000 MG PO (19:29)
== END 2024-05-17 19:32 | disposition home or self-care (01) ==
PROVIDERS: Emergency Provider Emergency Medicine; PCP Internal Medicine
DX: G40.909 Epilepsy, unspecified, not intractable, without status epilepticus (principal)
CPT/HCPCS: 36415; 80048; 80307; 85025; 93005; 96360; 99284; A9270